=== PATIENT | female | born 1965 | race Caucasian/White ===

== ENCOUNTER → 2017-06-08 | Outpatient (CLI) | payer OTHER ==
[~2017-06-08] MED LIST: ASPI-390 PO; PRT/20 PO
--- NOTE | 2017-06-08 12:14 | DIAGNOSTIC IMAGING REPORT ---
MRI OF THE BRAIN WITHOUT AND WITH IV CONTRAST CLINICAL HISTORY: EXTRANODULAR MARGIN ZONE, B CELL LYMPHOMA COMPARISON STUDY: 03-17 TECHNIQUE: MRI of the brain was performed from the vertex to the skull base utilizing various T1 and T2 weighted sequences. Following the IV administration of 6.5 mL of Gadavist contrast, additional enhanced images were obtained. FINDINGS: Sagittal T1, axial diffusion, proton density and T2 weighted axial, coronal FLAIR, and pre and post axial T1-weighted images were acquired. These were supplemented with post gadolinium coronal T1 weighted images. No intra or extra-axial mass lesions are visualized. Axial diffusion-weighted images reveal no evidence of acute or subacute infarction. There is no evidence of ventricular dilatation. Proton density T2-weighted and FLAIR images reveal scattered foci of increased T2 signal within the white matter, likely on a small vessel basis. There are no abnormal flow voids. There is no evidence of pathologic enhancement. There are persistent but improving diffuse signal abnormalities within the diploic space. IMPRESSION: 1. Persistent but improving diffuse signal abnormalities within the diploic space 2. No acute intracranial findings 3. No evidence of intracranial mass 4. No evidence of acute or subacute infarction 5. No evidence of recurrent scalp mass Electronically signed by: Grover Clements M.D. 06/08/2017 12:12 PM Dictated Date/Time: 06/08/2017 10:54 AM
== END | disposition home or self-care (01) ==
LOC: C.MRI 09:57
PROVIDERS: ATTEND Internal Medicine Hematology & Oncology
DX: C88.4 Extranodal marginal zone B-cell lymphoma of mucosa-associated lymphoid tissue [MALT-lymphoma] (principal); R22.0 Localized swelling, mass and lump, head

== ENCOUNTER → 2017-12-13 | Outpatient (CLI) | payer OTHER ==
[~2017-12-13] MED LIST changes: +OPTIRAY 320 IV PRN
--- NOTE | 2017-12-13 07:44 | DIAGNOSTIC IMAGING REPORT ---
HEAD CT WITH AND WITHOUT INTRAVENOUS CONTRAST HISTORY: B cell lymphoma. TECHNIQUE: Multiaxial CT images of the head are performed both before and after the intravenous administration of contrast. COMPARISON STUDY: Brain MRI 06/08/2017. Outside hospital head CT 09/08/2016. FINDINGS: The paranasal sinuses and mastoid air cells are clear. The calvarium and skull base are intact. No abnormal enhancement. Specifically no soft tissue masses within the scalp. CSF density in the region of the posterior superior sagittal sinus remains unchanged compared to the prior brain MRI. Therefore, this is likely a benign finding. There is no mass, hematoma, midline shift, acute infarct. IMPRESSION: No change compared to the prior studies. No acute intracranial abnormality. No scalp masses identified. Electronically signed by: Alejandro Huston M.D. 12/13/2017 7:43 AM Dictated Date/Time: 12/13/2017 7:30 AM
== END | disposition home or self-care (01) ==
LOC: C.CTS 07:04
PROVIDERS: ATTEND Internal Medicine Hematology & Oncology
DX: C88.4 Extranodal marginal zone B-cell lymphoma of mucosa-associated lymphoid tissue [MALT-lymphoma] (principal)